=== PATIENT | male | born 1980 ===

== ENCOUNTER 2020-08-04 18:14 | Outpatient (REF) | payer SELFPAY ==
[2020-08-09 01:04] LABS: SARS-CoV-2 RNA Undetected (Undetected); SARS-CoV-2 Specimen Source Nasal
== END 2020-08-04 18:34 ==
LOC: NCHCN 18:14
PROVIDERS: Visit Provider Internal Medicine
DX: Z20.828 Contact with and (suspected) exposure to other viral communicable diseases (principal)
CPT/HCPCS: U0003